=== PATIENT | female | born 1995 | race Caucasian/White ===

== ENCOUNTER 2019-05-21 13:00 | Outpatient (REF) | payer OTHER, SELFPAY ==
--- NOTE | 2019-05-21 13:00 | PAPFT_PTH ---
PATIENT: Jenna Salas LOC: [facility] U#:[id number] AGE/SX: 23/F ROOM: RE05/21/[address]: Ozzie Carrero : 1995 BED: DIS: 05/21/2019 SPEC #: [id number] RECD: 05/22/19 12:45 STATUS: HOMER REQ #: [id number] TENZIN: 05/21/19 13:[address]: Ozzie Carrero DEPT: [facility] Cytology RECD BY: Josi Akins ENTERED: 05/22/19 12:45 SP TYPE: PAPFT OTHR DR: Karina Restrepo Tissues: 1 - CX/ENDOCX FOR PAP SMEARS Procedures: PAP THIN PREP/[facility] Screening Comments: [id number]
== END 2019-05-21 13:20 ==
LOC: NCHCN 13:00
PROVIDERS: PCP Nurse Practitioner Family; Visit Provider Physician Assistant Medical
DX: Z12.4 Encounter for screening for malignant neoplasm of cervix (principal)
CPT/HCPCS: 88142

== ENCOUNTER 2020-07-24 17:50 | Outpatient (REF) | payer SELFPAY ==
[2020-07-29 11:50] LABS: SARS-CoV-2 RNA Not Detected (NotDetected); SARS-CoV-2 RNA Source Nasal/Nares
== END 2020-07-24 18:10 ==
LOC: NCHCN 17:50
PROVIDERS: PCP Family Medicine; Visit Provider Nurse Practitioner Family
DX: Z11.59 Encounter for screening for other viral diseases (principal)
CPT/HCPCS: U0003

== ENCOUNTER 2022-06-13 14:57 | Outpatient (REF) | payer OTHER, SELFPAY ==
[2022-06-13 19:19] LABS: Abs Immature Grans 0.02 10^3/uL (0.0-0.06); Absolute Eosinophil Count 0.11 10^3/uL (0.0-0.7); Absolute Lymphocyte Count 1.88 10^3/uL (1.2-3.4); Absolute Monocyte Count 0.48 10^3/uL (0.1-0.8); Absolute Neutrophil Count 5.31 10^3/uL (1.2-6.7); Basophils % 1.3; Eosinophils % 1.4; HCT 32.9 % (36.0-46.0); HGB 10.1 g/dL (11.2-15.7); Immature Grans % 0.3; Lymphocytes % 23.8; MCH 23.8 pg (27.0-33.0); MCHC 30.7 % (32.0-36.0); MCV 78 fL (80-95); MPV 11.2 fL (8.0-11.0); Monocytes % 6.1; Neutrophils % 67.1; Platelet Count 289 10^3/uL (130-400); RBC 4.24 10^6/uL (3.93-5.22); RDW 15.9 % (11.7-14.6); RDW-SD 44.8 fL
[2022-06-13 19:21] LABS: ESR 4 mm/hr (0-20)
[2022-06-13 19:35] LABS: ALT 23 U/L (14-59); AST 24 U/L (15-37); Albumin 4.1 g/dL (3.4-5.0); Alkaline Phosphatase 68 U/L (46-116); Anion Gap 8.5 mmol/L (3-11); BUN 12 mg/dL (7-18); Bilirubin, Total 0.4 mg/dL (0.2-1.0); CO2 26.5 mmol/L (21.0-32.0); CREATININE 0.9 mg/dL (0.55-1.02); Chloride 103 mmol/L (98-107); Glucose 85 mg/dL (74-106); Potassium 3.8 mmol/L (3.5-5.1); Sodium 138 mmol/L (136-145); TSH (W/Ref FT4) 0.84 uIU/mL (0.36-3.74); Total Protein 7.6 g/dL (6.4-8.2)
[2022-06-14 09:18] LABS: Ferritin 5 ng/mL (8-252); Vitamin B12 1231 pg/mL (193-986)
== END 2022-06-13 14:58 | disposition home or self-care (01) ==
LOC: NCHCN 14:57
PROVIDERS: PCP Family Medicine; Visit Provider Physician Assistant Medical
DX: K90.0 Celiac disease (principal)
CPT/HCPCS: 80053; 85652; 82607; 82728; 82746; 84443; 85025

== ENCOUNTER 2022-07-06 02:10 | Outpatient (RCR) | payer OTHER, SELFPAY ==
[2022-06-22] MEDS: IRON SUCROSE COMPLEX 300 MG in Normal Saline 250 ML 176.667 MG IVPB (13:15)
[2022-06-22] MEDS: Normal Saline Flush 10 ML SYR IVP (13:16)
[2022-06-29] MEDS: IRON SUCROSE COMPLEX 300 MG in Normal Saline 250 ML 176.667 MG IVPB (13:18)
[2022-06-29] MEDS: Normal Saline Flush 10 ML SYR IVP (13:19)
[2022-07-06] MEDS: IRON SUCROSE COMPLEX 300 MG in Normal Saline 250 ML 176.667 MG IVPB (13:19)
[2022-07-06] MEDS: Normal Saline Flush 10 ML SYR IVP (13:19)
== END 2022-07-18 23:59 | disposition home or self-care (01) ==
LOC: INF 02:10
PROVIDERS: PCP Family Medicine; Visit Provider Nurse Practitioner Acute Care
DX: D50.9 Iron deficiency anemia, unspecified (principal)
CPT/HCPCS: 96365; 96366; J1756

== ENCOUNTER 2022-09-02 01:07 | Outpatient (CLI) | payer OTHER, SELFPAY ==
[2022-09-02 15:44] LABS: Abs Immature Grans 0.01 10^3/uL (0.0-0.06); Absolute Basophil Count 0.06 10^3/uL (0.0-0.2); Absolute Eosinophil Count 0.09 10^3/uL (0.0-0.7); Absolute Lymphocyte Count 2.59 10^3/uL (1.2-3.4); Absolute Neutrophil Count 2.78 10^3/uL (1.2-6.7); Eosinophils % 1.5; HCT 39.4 % (36.0-46.0); HGB 13.1 g/dL (11.2-15.7); Immature Grans % 0.2; Lymphocytes % 43.7; MCH 27.1 pg (27.0-33.0); MCHC 33.2 % (32.0-36.0); MCV 82 fL (80-95); MPV 10.9 fL (8.0-11.0); Monocytes % 6.7; Neutrophils % 46.9; Platelet Count 259 10^3/uL (130-400); RBC 4.83 10^6/uL (3.93-5.22); RDW 18.5 % (11.7-14.6); RDW-SD 54.7 fL; WBC 5.93 10^3/uL (4.4-10.8)
[2022-09-02 16:16] LABS: ALT 17 U/L (14-59); AST 15 U/L (15-37); Albumin 4.3 g/dL (3.4-5.0); Alkaline Phosphatase 77 U/L (46-116); Anion Gap 5.8 mmol/L (3-11); BUN 12 mg/dL (7-18); Bilirubin, Total 0.4 mg/dL (0.2-1.0); CO2 29.2 mmol/L (21.0-32.0); CREATININE 0.7 mg/dL (0.55-1.02); Calcium 9.4 mg/dL (8.5-10.1); Chloride 102 mmol/L (98-107); Estimated GFR 120.74 (mL/min/1.73m2); Ferritin 42 ng/mL (8-252); Glucose 95 mg/dL (74-106); Potassium 3.7 mmol/L (3.5-5.1); Sodium 137 mmol/L (136-145); TSH (W/Ref FT4) 1.18 uIU/mL (0.36-3.74); Total Protein 7.7 g/dL (6.4-8.2)
[2022-09-02 16:23] LABS: Iron 45 ug/dL (50-170); Total Iron Binding Capacity 375 ug/dL (250-450); Transferrin Sat 12 % (15-50)
[2022-09-05 09:52] LABS: IgA 166 mg/dL (85-499); IgG 1007 mg/dL (610-1616)
[2022-09-06 14:37] LABS: Tissue Transglutaminase Ab IgA 1.3 U/mL
== END 2022-09-02 01:08 | disposition home or self-care (01) ==
LOC: LBO 01:07
PROVIDERS: PCP Family Medicine; Visit Provider Nurse Practitioner Family
DX: R63.4 Abnormal weight loss (principal); R11.0 Nausea; R14.0 Abdominal distension (gaseous); K90.49 Malabsorption due to intolerance, not elsewhere classified; R15.2 Fecal urgency; R51.9 Headache, unspecified; K52.832 Lymphocytic colitis; R19.7 Diarrhea, unspecified; K90.0 Celiac disease
CPT/HCPCS: 36415; 80053; 82784; 82728; 83516; 83540; 83550; 84443; 85025

== ENCOUNTER 2022-09-13 08:44 | Outpatient (REF) | payer OTHER, SELFPAY ==
[2022-09-13 23:06] LABS: Campylobacter PCR Negative (Negative); Salmonella PCR Negative (Negative); Shiga Toxin PCR Negative (Negative); Shigella/Enteroinvasive Ecoli Negative (Negative)
[2022-09-14 21:13] LABS: Calprotectin 81.7 mcg/g
== END 2022-09-13 08:45 | disposition home or self-care (01) ==
LOC: LBN 08:44
PROVIDERS: PCP Family Medicine; Visit Provider Nurse Practitioner Family
DX: K90.0 Celiac disease (principal); R19.7 Diarrhea, unspecified; K52.832 Lymphocytic colitis; R51.9 Headache, unspecified; R15.2 Fecal urgency; K90.49 Malabsorption due to intolerance, not elsewhere classified; R14.0 Abdominal distension (gaseous); R11.0 Nausea; R63.4 Abnormal weight loss
CPT/HCPCS: 87329; 87493; 87505; 83993

== ENCOUNTER 2023-03-03 03:09 | Outpatient (CLI) | payer OTHER, SELFPAY ==
[2023-03-03 15:30] LABS: Abs Immature Grans 0.03 10^3/uL (0.0-0.06); Absolute Basophil Count 0.04 10^3/uL (0.0-0.2); Absolute Eosinophil Count 0.04 10^3/uL (0.0-0.7); Absolute Lymphocyte Count 2.21 10^3/uL (1.2-3.4); Absolute Monocyte Count 0.55 10^3/uL (0.1-0.8); Absolute Neutrophil Count 5.79 10^3/uL (1.2-6.7); Basophils % 0.5; Eosinophils % 0.5; HCT 38.4 % (36.0-46.0); HGB 13.1 g/dL (11.2-15.7); Immature Grans % 0.3; Lymphocytes % 25.5; MCH 28.7 pg (27.0-33.0); MCHC 34.1 % (32.0-36.0); MCV 84 fL (80-95); MPV 10.4 fL (8.0-11.0); Monocytes % 6.4; Neutrophils % 66.8; Platelet Count 265 10^3/uL (130-400); RBC 4.56 10^6/uL (3.93-5.22); RDW 13.2 % (11.7-14.6); WBC 8.66 10^3/uL (4.4-10.8)
[2023-03-03 16:10] LABS: Iron 35 ug/dL (50-170); Total Iron Binding Capacity 397 ug/dL (250-450)
[2023-03-03 16:34] LABS: Vitamin D 25 Total 37.6 ng/mL (30-100)
[2023-03-03 16:38] LABS: ALT 16 U/L (14-59); AST 10 U/L (15-37); Albumin 3.7 g/dL (3.4-5.0); Alkaline Phosphatase 57 U/L (46-116); Anion Gap 10.6 mmol/L (3-11); BUN 6 mg/dL (7-18); Bilirubin, Total 0.5 mg/dL (0.2-1.0); CO2 23.4 mmol/L (21.0-32.0); CREATININE 0.6 mg/dL (0.55-1.02); Calcium 8.9 mg/dL (8.5-10.1); Chloride 101 mmol/L (98-107); Estimated GFR 124.53 (mL/min/1.73m2); Ferritin 9 ng/mL (8-252); Glucose 99 mg/dL (74-106); Potassium 3.5 mmol/L (3.5-5.1); Sodium 135 mmol/L (136-145); TSH (W/Ref FT4) 0.77 uIU/mL (0.36-3.74); Total Protein 7.3 g/dL (6.4-8.2); Vitamin B12 834 pg/mL (193-986)
[2023-03-03 16:39] LABS: Folate > 20.0 ng/mL (8.6-20.0)
[2023-03-06 09:51] LABS: IgA 156 mg/dL (85-499); IgG 824 mg/dL (610-1616)
[2023-03-06 12:03] LABS: Tissue Transglutaminase IgA 1.5 U/mL (<4.0)
[2023-03-06 20:14] LABS: Zinc, S 58 mcg/dL (60-106)
== END 2023-03-03 03:10 | disposition home or self-care (01) ==
LOC: LBO 03:09
PROVIDERS: PCP Family Medicine; Visit Provider Internal Medicine Gastroenterology
DX: K90.0 Celiac disease (principal); K52.832 Lymphocytic colitis; R19.7 Diarrhea, unspecified; R15.2 Fecal urgency; R14.0 Abdominal distension (gaseous); R11.0 Nausea; R63.4 Abnormal weight loss; R51.9 Headache, unspecified; K90.49 Malabsorption due to intolerance, not elsewhere classified
CPT/HCPCS: 36415; 80053; 82306; 82784; 84630; 82607; 82728; 82746; 83540; 83550; 84443; 85025

== ENCOUNTER 2024-02-10 13:00 | Emergency (ER) | payer OTHER, SELFPAY ==
--- NOTE | 2024-02-10 13:00 | DI.RAD_ITS ---
Exam(s) XR WRIST RT COMPL NAVICULAR EXAM: XR WRIST RT COMPL NAVICULAR CLINICAL HISTORY: fall - distal radius pain. TECHNIQUE: 2D digital imaging was performed. Three views. COMPARISON: No exams were available for comparison FINDINGS: BONES: No acute fracture is present. No bony destructive lesion is seen. JOINTS: The carpal bones are normally aligned. SOFT TISSUE: Mild swelling. IMPRESSION: Unremarkable radiographs of the right wrist. DATA REPOSITORY: RADIATION DOSE DELIVERED:
[2024-02-10 13:01] VITALS: BP 137/91; PULSE 97; RESP 16; TEMP 37.3; O2SAT 99
--- NOTE | 2024-02-10 13:12 | W.ED.GENAD ---
Discharge Plan Disposition Patient Disposition: Home Discharge Details Clinical Impression: Right wrist sprain Primary Care Provider: Estrella Valenzuela ED Provider: Esequiel Rjoo Home Meds and New Rx's Prescriptions: No Action PNV cmb#95-ferrous fumarate-FA [] 28 mg iron- 800 mcg tablet 1 tab PO DAILY ibuprofen [Advil] 200 mg tablet 400 mg PO Q6H PRN Discharge Instructions Instructions: Wrist Sprain (ED) Additional Instructions: You may continue to take [id number] pain medication as needed for discomfort. Please apply ice to help with swelling and use the wrist splint as discussed. If not improving in the next 1 to 2 weeks please follow-up with your primary care provider or orthopedic office for reassessment and further evaluation as needed. If you have any new or significant worsening of symptoms feel free to return the emergency department for reassessment. Referrals: [facility] [Provider Group] (As needed) HPI General Mode of arrival: ambulatory. Date/Time Provider Initiated Documentation: 02/10/24 13:06. Limitations to Documentation: no limitations. Information obtained by: patient and RN notes reviewed. History of Present Illness 28 year old F presents to the emergency department with the chief complaint of Fall with right wrist injury, described as moderate and severe, Quality is described as sharp, and is localized to the right and upper extremity. Patient started experiencing this hour(s) (2) and it has been constant. Immobilization improves symptom(s), Movement worsens symptoms . Patient notes no other symptoms.. Patient did receive the following treatments prior to arrival, NSAID Related Data Home Medications Medication Instructions Recorded Confirmed ibuprofen 200 mg tablet (Advil) 400 mg PO Q6H PRN 02/10/24 02/10/24 vit no.95-ferrous 1 tab PO DAILY 02/10/24 02/10/24 fumarate 28 mg-folic acid 800 mcg tablet () Allergies Allergy/AdvReac Type Severity Reaction Status Date / Time gluten AdvReac Intermediate Diarrhea Verified 02/10/24 13:16 Sulfa (Sulfonamide AdvReac Intermediate Hives Verified 02/10/24 13:16 Antibiotics) General Stated Complaint: Orthopedic ISIDRO: 4 Review of Systems Constitutional Constitutional: Denies headache(s) ENT Ears, Nose, Mouth, and Throat: Denies headache(s) Cardiovascular Cardiovascular: Denies syncope Musculoskeletal Musculoskeletal: Reports as per HPI, Reports deformity, Reports arthralgias, Reports limited range of motion, Denies numbness and Denies tingling Neurologic Neurologic: Denies syncope, Denies headache(s), Denies numbness and Denies tingling Exam Const General: cooperative, no acute distress and not ill appearing Orientation: alert, awake and oriented x3 HENMT Mouth: moist mucous membranes Resp Effort & Inspection: normal respiratory effort, able to speak in complete sentences and no respiratory distress Cardio Rate: regular rate Rhythm: regular rhythm Pulses: normal peripheral pulses Skin General skin exam: no rashes or lesions noted Neuro General: patient alert, patient awake, patient oriented x3, moves all extremities and no focal motor deficits Sensory Exam: no sensory deficits noted Extrem General: normal exam except as noted Right upper extremity: wrist Details: tenderness Location: of the distal radius and of the anatomic snuffbox, swelling Location: of the dorsal wrist, abnormal ROM (Significant pain with any range of motion), normal vascular exam and radial pulse present; no abrasions, no lacerations and no ecchymosis and hand Details: normal to inspection, normal capillary refill, neuromotor exam normal and neurosensory exam normal; no tenderness Course Vital Signs Vital signs: Vital Signs Temperature 37.3 C 02/10/24 13:01 Pulse 97 H 02/10/24 13:01 Respiratory Rate 16 02/10/24 13:01 Blood Pressure 137/91 H 02/10/24 13:01 Pulse Oximetry 99 02/10/24 13:01 Temperature 37.3 C 02/10/24 13:01 Temperature Source Temporal Artery Scan 02/10/24 13:01 Pulse 97 H 02/10/24 13:01 Respiratory Rate 16 02/10/24 13:01 Blood Pressure 137/91 H 02/10/24 13:01 Blood Pressure Position Sitting 02/10/24 13:01 Pulse Oximetry 99 02/10/24 13:01 Oxygen Delivery Method Room Air 02/10/24 13:01 Oxygen Flow Rate 0 02/10/24 13:01 Medical Decision Making Patient presenting to the emergency department for chief complaint of right wrist injury. She states approximately 2 hours ago she was coming out of her camper and accidentally tripped falling and mostly landing on her right wrist. She states minor abrasions and other injuries but denies any head injury, loss of consciousness, neck or back pain. No other significant past medical history. Patient did take ibuprofen prior to arrival which she states is working appropriately for pain control. Physical exam shows significant discomfort to the right distal radius with severe pain from any movement of the wrist. No tenderness to the elbow, hand, and exam is otherwise noncontributory. Will plan on performing radiological imaging for evaluation of fracture versus sprain patient denies any need for pain medication pending results. Review of radiological imaging shows no acute findings. Patient placed in a thumb spica splint and discussed conservative management with patient. After discussion of diagnosis and plan of care patient has no further needs, questions, or concerns and states clear understanding to return to the emergency department for any worsening symptoms. This documentation was generated using [employer] dictation system, please disregard any oddities of phrase or misspellings. Imaging Data Radiologic Study: Imaging: X-Ray Radiologist's impression: Exam(s) PROCEDURE INFORMATION: Exam: XR Right Wrist Exam date and time: 02/10/2024 1:29 PM Age: 28 years old Clinical indication: Injury or trauma; Fall; Sprain or strain; Wrist; Right TECHNIQUE: Imaging protocol: Radiologic exam of the right wrist. Views: 3 or more views. COMPARISON: No relevant prior studies available. FINDINGS: Bones/joints: Normal. Soft tissues: Normal. IMPRESSION: No acute findings. Dictated and Authenticated by: Emelyn Jo MD. Quality:SDOH Health Related Social Needs: No Data to Display PFSH All Active Problems (Updated 02/10/24 @ 14:10 by Esequiel Rojo NP) Right wrist sprain (Acute) Social History Smoking/Tobacco Use Status: Never Smoking risk assessment performed?: Yes Alcohol Intake: never Substance use type: does not use Housing: house Do you feel safe at home: Yes Do you feel safe in your relationship?: Yes
--- NOTE | 2024-02-10 13:54 | DI.VRAD_ITS ---
PROCEDURE INFORMATION: Exam: XR Right Wrist Exam date and time: 02/10/2024 1:29 PM Age: 28 years old Clinical indication: Injury or trauma; Fall; Sprain or strain; Wrist; Right TECHNIQUE: Imaging protocol: Radiologic exam of the right wrist. Views: 3 or more views. COMPARISON: No relevant prior studies available. FINDINGS: Bones/joints: Normal. Soft tissues: Normal. IMPRESSION: No acute findings. Dictated and Authenticated by: Emelyn Jo MD. Ordering:MASON Iraheta MD
== END 2024-02-10 14:28 | disposition home or self-care (01) ==
LOC: ER 14:46
PROVIDERS: Emergency Provider Nurse Practitioner Family; PCP Family Medicine
DX: S63.501A Unspecified sprain of right wrist, initial encounter; W19.XXXA Unspecified fall, initial encounter
CPT/HCPCS: 29125; 99283; 73110; 99284